=== PATIENT | female | born 1970 | race Caucasian/White ===

== ENCOUNTER 2020-09-25 19:06 | Emergency (ER) | payer OTHER ==
[~2020-09-25] VITALS: Ht 157.5 cm; Wt 89.8 kg
[~2020-09-25 19:06] MED LIST: CODE1TAB37 PO
== END 2020-09-25 22:48 | disposition home or self-care (01) ==
LOC: ER 19:06
DX: M25.552 Pain in left hip (principal); M79.662 Pain in left lower leg